=== PATIENT | female | born 1930 | race Caucasian/White ===

== ENCOUNTER 2016-11-19 09:56 | Emergency (ER) | payer MEDICARE ==
[~2016-11-19] VITALS: Ht 152.4 cm; Wt 72.6 kg
== END 2016-11-19 11:20 | disposition short-term general hospital (02) ==
LOC: ER 09:56
DX: M17.11 Unilateral primary osteoarthritis, right knee (principal); M19.012 Primary osteoarthritis, left shoulder; M54.5 Low back pain; R15.9 Full incontinence of feces

== ENCOUNTER 2016-12-25 08:30 | Emergency (ER) | payer MEDICARE ==
[~2016-12-25] VITALS: Ht 152.4 cm; Wt 73.5 kg
[2016-12-25] MEDS ORDERED: XARELTO20 MG PO (10:59)
[2016-12-25] MEDS ORDERED: TRIAMCINOLONE A15 G1 TOP (11:00)
[2016-12-25] MEDS ORDERED: FLUOCINONIDE15 G2 TOP (11:00)
[2016-12-25] MEDS ORDERED: ASPIRIN81 MG PO (11:01)
[2016-12-25] MEDS ORDERED: COSOPT 2%-0.5%10 ML EYERT (11:01)
[2016-12-25] MEDS ORDERED: TIMOPTIC 0.5%1 EACH EYERT (11:01)
[2016-12-25] MEDS ORDERED: NORVASC10 MG PO (11:02)
[2016-12-25] MEDS ORDERED: CVS FISH OIL 11 EAC2 PO (11:02)
[2016-12-25] MEDS ORDERED: ZOCOR20 MG PO (11:02)
[2016-12-25] MEDS ORDERED: KLOR-CON M1010 MEQ PO (11:02)
[2016-12-25] MEDS ORDERED: VALSARTAN-HCTZ1 EAC3 PO (11:03)
[2016-12-25] MEDS ORDERED: HYDROCHLOROTHIA25 MG PO (11:03)
[2016-12-25] MEDS ORDERED: ELAVIL10 MG PO (11:04)
[2016-12-25] MEDS ORDERED: ULTRAM50 MG PO (11:04)
== END 2016-12-25 10:10 | disposition short-term general hospital (02) ==
LOC: ER 08:30
DX: S20.212A Contusion of left front wall of thorax, initial encounter (principal); H40.9 Unspecified glaucoma; M13.862 Other specified arthritis, left knee; M13.861 Other specified arthritis, right knee; M13.88 Other specified arthritis, other site; I82.491 Acute embolism and thrombosis of other specified deep vein of right lower extremity; Z79.82 Long term (current) use of aspirin; Z79.899 Other long term (current) drug therapy; W17.89XA Other fall from one level to another, initial encounter
CPT/HCPCS: J1940; J2060